=== PATIENT | male | born 1985 | race Caucasian/White ===

== ENCOUNTER 2021-03-18 10:49 | Emergency (ER) | payer OTHER | END 2021-03-18 11:30 | disposition left against medical advice (07) | LOC: ER1 10:49 | DX: Z53.21 Procedure and treatment not carried out due to patient leaving prior to being seen by health care provider (principal) ==

== ENCOUNTER 2021-04-15 14:08 | Emergency (ER) | payer OTHER | END 2021-04-15 15:30 | disposition left against medical advice (07) | LOC: ER1 14:08 | DX: Z53.21 Procedure and treatment not carried out due to patient leaving prior to being seen by health care provider (principal) ==

== ENCOUNTER 2021-12-27 15:12 | Emergency (ER) | payer OTHER | END 2021-12-27 16:38 | disposition left against medical advice (07) | LOC: ER1 15:12 | DX: Z53.21 Procedure and treatment not carried out due to patient leaving prior to being seen by health care provider (principal) ==